=== PATIENT | female | born 1990 | race American Indian/Alaskan Native ===

== ENCOUNTER 2021-01-22 16:58 | Emergency (ER) | payer OTHER ==
[2021-01-22 19:19] LABS: Red Blood Count 4.05 M/mm3 (3.65-5.03)
[2021-01-22 19:20] LABS: Basophils # (Auto) 0.1 K/mm3 (0.0-0.1); Basophils % (Auto) 0.6 % (0.0-1.8); Eosinophils # (Auto) 0.1 K/mm3 (0.0-0.4); Eosinophils % (Auto) 0.9 % (0.0-4.3); Hematocrit 38.9 % (30.3-42.9); Hemoglobin 13.1 gm/dl (10.1-14.3); Lymphocytes # (Auto) 1.8 K/mm3 (1.2-5.4); Lymphocytes % (Auto) 18.1 % (13.4-35.0); Mean Corpuscular HGB Conc 34 % (30-34); Mean Corpuscular Volume 96 fl (79-97); Monocytes % (Auto) 9.5 % (0.0-7.3); Platelet Count 304 K/mm3 (140-440); Red Cell Distribution Width 14.1 % (13.2-15.2)
[2021-01-22 19:25] LABS: BUN/Creatinine Ratio 11; Blood Urea Nitrogen 12 mg/dL (7-17); Calcium 9.8 mg/dL (8.4-10.2); Hemolysis Index 7
--- NOTE | 2021-01-22 19:33 | Emergency Department Report ---
ED General Adult HPI - General Chief complaint: Urogenital-Female Stated complaint: 7WKS PREG/BLOOD PRESSURE HIGH/ABD PAIN Time Seen by Provider: 01/22/21 18:25 Source: patient Mode of arrival: Ambulatory Limitations: No Limitations - History of Present Illness Initial comments: Patient is a 30-year-old female presents emergency room with complaints of mild lower abdominal cramping for the last few days. Patient states that she originally went to [facility] for confirmation of and was advised she was back in November. She states that she then saw Merritt Giraldo CLERK MANAGER at the end of December and was advised that she had a 7-week gestational sac but no heartbeat. She states a few days later she went to [facility] emergency room and was advised that she had a 5-week gestational sac but again no heartbeat. She states that Merritt Giraldo advised her that she likely had demise and they offered her Cytotec or D&C. She states that she reports to the emergency room today due to the cramping and she wants to have another opinion. She denies any fever, nausea, vomiting, diarrhea, urinary symptoms, vaginal bleeding. Past medical history of hypertension and brain aneurysm causing intercranial hemorrhage. No allergies to medications. She takes metoprolol chlorothiazide and amlodipine daily. - Related Data Previous Rx's Medication Instructions Recorded Last Taken Type hydrALAZINE [Apresoline TAB] 25 mg PO Q8HR PRN #10 tab 01/22/21 Unknown Rx Allergies Allergy/AdvReac Type Severity Reaction Status Date / Time No Known Allergies Allergy Verified 01/22/21 21:13 ED Review of Systems ROS: Stated complaint: 7WKS PREG/BLOOD PRESSURE HIGH/ABD PAIN Other details as noted in HPI Comment: All other systems reviewed and negative ED Past Medical Hx - Past Medical History Previous Medical History?: Yes Hx Hypertension: Yes Hx CVA: Yes (2019) - Surgical History Past Surgical History?: No - Social History Smoking Status: Never Smoker Substance Use Type: None - Medications Home Medications: Home Medications Medication Instructions Recorded Confirmed Last Taken Type hydrALAZINE [Apresoline TAB] 25 mg PO Q8HR PRN #10 tab 01/22/21 Unknown Rx ED Physical Exam - General Limitations: No Limitations General appearance: alert, in no apparent distress - Head Head exam: Present: atraumatic, normocephalic - Eye Eye exam: Present: normal appearance - ENT ENT exam: Present: mucous membranes moist - Respiratory Respiratory exam: Present: normal lung sounds bilaterally. Absent: respiratory distress, wheezes, rales, rhonchi, stridor, chest wall tenderness, accessory muscle use, decreased breath sounds, prolonged expiratory - Cardiovascular Cardiovascular Exam: Present: regular rate, normal rhythm, normal heart sounds. Absent: systolic murmur, diastolic murmur, rubs, gallop - Neurological Exam Neurological exam: Present: alert, oriented X3 - Psychiatric Psychiatric exam: Present: normal affect, normal mood - Skin Skin exam: Present: warm, dry, intact ED Course Vital Signs 01/22/21 01/22/21 18:24 22:14 Temperature 98.9 F Pulse Rate 89 69 Respiratory 20 16 Rate Blood Pressure 185/115 180/99 [Left] O2 Sat by Pulse 100 100 Oximetry ED Medical Decision Making - Lab Data Result diagrams: 01/22/21 18:56 01/22/21 18:56 Lab Results 01/22/21 01/22/21 01/22/21 Range/Units 18:56 18:56 18:56 WBC 10.1 (4.5-11.0) K/mm3 RBC 4.05 (3.65-5.03) M/mm3 Hgb 13.1 (10.1-14.3) gm/dl Hct 38.9 (30.3-42.9) % MCV 96 (79-97) fl MCH 32 (28-32) pg MCHC 34 (30-34) % RDW 14.1 (13.2-15.2) % Plt Count 304 (140-440) K/mm3 Lymph % (Auto) 18.1 (13.4-35.0) % [place] % (Auto) 9.5 H (0.0-7.3) % Eos % (Auto) 0.9 (0.0-4.3) % Baso % (Auto) 0.6 (0.0-1.8) % Lymph # (Auto) 1.8 (1.2-5.4) K/mm3 [place] # (Auto) 1.0 H (0.0-0.8) K/mm3 Eos # (Auto) 0.1 (0.0-0.4) K/mm3 Baso # (Auto) 0.1 (0.0-0.1) K/mm3 Seg Neutrophils % 70.9 H (40.0-70.0) % Seg Neutrophils # 7.1 (1.8-7.7) K/mm3 Sodium 135 L (137-145) mmol/L Potassium 3.9 (3.6-5.0) mmol/L Chloride 102.3 (98-107) mmol/L Carbon Dioxide 21 L (22-30) mmol/L Anion Gap 16 mmol/L BUN 12 (7-17) mg/dL Creatinine 1.1 (0.6-1.2) mg/dL Estimated GFR > 60 ml/min BUN/Creatinine Ratio 11 % Glucose 144 H (65-100) mg/dL Calcium 9.8 (8.4-10.2) mg/dL HCG, Quant 2400 H (0-4) mIU/mL Vital Signs 01/22/21 18:24 Temperature 98.9 F Pulse Rate 89 Respiratory 20 Rate Blood Pressure 185/115 [Left] O2 Sat by Pulse 100 Oximetry Vital Signs 01/22/21 01/22/21 18:24 22:14 Temperature 98.9 F Pulse Rate 89 69 Respiratory 20 16 Rate Blood Pressure 185/115 180/99 [Left] O2 Sat by Pulse 100 100 Oximetry - Radiology Data Radiology results: report reviewed Ordering Physician: ANALISA WHITMAN Date of Service: 01/22/21 Procedure(s): US OB transvaginal Accession Number(s): [id number] cc: ANALISA WHITMAN ULTRASOUND OBSTETRIC INDICATION / CLINICAL INFORMATION: , recent dx possible demise,cramping. TECHNIQUE: Transabdominal and Transvaginal. COMPARISON: None available. FINDINGS: GESTATIONAL SAC: Well-defined oval shape and intrauterine in location. YOLK SAC: No significant abnormality. EMBRYO/FETUS: No significant abnormality. - [place]-Rump Length = 0.36 cm = 6 weeks, 0 day(s). - Heart Rate, beats per minute (if present) = not detected with M-mode or color Doppler ADNEXA: Left ovarian follicular cyst measures 4.0 x 2.4 x 3.2 cm. Right ovary within normal limits FREE FLUID: None. ADDITIONAL FINDINGS: None. IMPRESSION: 1. Probable demise with no detectable heart rate. Due to early dates, recommend follow-up beta-hCG and ultrasound in 2 days for definitive confirmation 2. 4 cm left ovarian follicular cyst Signer Name: Al Kaye MD Signed: 01/22/2021 8:48 PM Workstation Name: [id number] Transcribed By: RIKA Dictated By: Al Kaye MD Electronically Authenticated By: Al Kaye MD Signed Date/Time: 01/22/212047 DD/ 44 TD/TT: - Medical Decision Making Patient is a 30-year-old female presents emergency room with complaints of mild lower abdominal cramping for the last few days. Patient states that she originally went to [facility] for confirmation of and was advised she was back in November. She states that she then saw Merritt Giraldo CLERK MANAGER at the end of December and was advised that she had a 7-week gestational sac but no heartbeat. She states a few days later she went to [facility] emergency room and was advised that she had a 5-week gestational sac but again no heartbeat. She states that Merritt Giraldo advised her that she likely had demise and they offered her Cytotec or D&C. She states that she reports to the emergency room today due to the cramping and she wants to have another opinion. She denies any fever, nausea, vomiting, diarrhea, urinary symptoms, vaginal bleeding. Past medical history of hypertension and brain aneurysm causing intercranial hemorrhage. No allergies to medications. She takes metoprolol chlorothiazide and amlodipine daily. Vitals with elevated blood pressure, otherwise vitals are normal. No abdominal tenderness on exam, no guarding, no rebound, no rigidity, no peritoneal signs, patient is in no acute distress, nontoxic appearing. Labs with hCG quant 2400. OB ultrasound: 1. Probable demise with no detectable heart rate. Due to early dates, recommend follow-up beta-hCG and ultrasound in 2 days for definitive confirmation 2. 4 cm left ovarian follicular cyst. Discussed ultrasound findings with patient which appear consistent with demise, stressed the importance of CLERK MANAGER follow-up as this likely shows retained products from demise. Discussed case with Dr. Santiago, ER attending regarding patient's history of chronic hypertension with intracranial hemorrhage, he advised to give patient 25 mg p.o. hydralazine now and to give patient prescription for 10 tablets of 25 mg hydralazine to take as needed if systolic blood pressure is greater than 180. Discussed all findings with patient and answer questions. Advised patient Please take medication as directed if blood p ressure is greater than 180 systolic. Eat a low-sodium diet, incorporate 30 to 60 minutes of daily exercise, increase your water intake, keep a blood pressure log. Follow-up with your primary care doctor. Please follow-up with your CLERK MANAGER, you need close CLERK MANAGER follow-up. Return to emergency room for any new or worsening symptoms. Critical care attestation.: If time is entered above; I have spent that time in minutes in the direct care of this critically ill patient, excluding procedure time. ED Disposition Clinical Impression: demise, Elevated blood pressure reading, Chronic hypertension Disposition: HOME / SELF CARE / HOMELESS Is pt being admited?: No Does the pt Need Aspirin: No Condition: Stable Instructions: Demise, Managing Your Hypertension, Hypertension (ED) Additional Instructions: Please take medication as directed if blood pressure is greater than 180 systolic. Eat a low-sodium diet, incorporate 30 to 60 minutes of daily exercise, increase your water intake, keep a blood pressure log. Follow-up with your primary care doctor. Please follow-up with your CLERK MANAGER, you need close CLERK MANAGER follow-up. Return to emergency room for any new or worsening symptoms. Prescriptions: hydrALAZINE [Apresoline TAB] 25 mg PO Q8HR PRN #10 tab PRN Reason: if blood pressure is >180 Referrals: [facility] [Provider Group] - 2-3 Days [facility] [Provider Group] - 2-3 Days NADIRA GARRIDO MD [Staff Physician] - 2-3 Days GUSTABO DOYLE MD [Staff Physician] - 2-3 Days Time of Disposition: 21:06 Print Language: CANADIAN
--- NOTE | 2021-01-22 20:52 | Ultrasound Report ---
ULTRASOUND OBSTETRIC INDICATION / CLINICAL INFORMATION: , recent dx possible demise,cramping. TECHNIQUE: Transabdominal and Transvaginal. COMPARISON: None available. FINDINGS: GESTATIONAL SAC: Well-defined oval shape and intrauterine in location. YOLK SAC: No significant abnormality. EMBRYO/FETUS: No significant abnormality. - [place]-Rump Length = 0.36 cm = 6 weeks, 0 day(s). - Heart Rate, beats per minute (if present) = not detected with M-mode or color Doppler ADNEXA: Left ovarian follicular cyst measures 4.0 x 2.4 x 3.2 cm. Right ovary within normal limits FREE FLUID: None. ADDITIONAL FINDINGS: None. IMPRESSION: 1. Probable demise with no detectable heart rate. Due to early dates, recommend follow-up beta- hCG and ultrasound in 2 days for definitive confirmation 2. 4 cm left ovarian follicular cyst Signer Name: Al Kaye MD Signed: 01/22/2021 8:48 PM Workstation Name: [id number]
--- NOTE | 2021-01-22 20:52 | Ultrasound Report ---
ULTRASOUND OBSTETRIC INDICATION / CLINICAL INFORMATION: , recent dx possible demise,cramping. TECHNIQUE: Transabdominal and Transvaginal. COMPARISON: None available. FINDINGS: GESTATIONAL SAC: Well-defined oval shape and intrauterine in location. YOLK SAC: No significant abnormality. EMBRYO/FETUS: No significant abnormality. - [place]-Rump Length = 0.36 cm = 6 weeks, 0 day(s). - Heart Rate, beats per minute (if present) = not detected with M-mode or color Doppler ADNEXA: Left ovarian follicular cyst measures 4.0 x 2.4 x 3.2 cm. Right ovary within normal limits FREE FLUID: None. ADDITIONAL FINDINGS: None. IMPRESSION: 1. Probable demise with no detectable heart rate. Due to early dates, recommend follow-up beta- hCG and ultrasound in 2 days for definitive confirmation 2. 4 cm left ovarian follicular cyst Signer Name: Al Kaye MD Signed: 01/22/2021 8:48 PM Workstation Name: [id number]
[2021-01-22] MEDS ORDERED: hydrALAZINE 25 MG TAB PO ONE (21:46)
[2021-01-23 05:52] VITALS: BP 180/99
== END 2021-01-22 22:14 | disposition home or self-care (01) ==
LOC: ED 16:58
DX: O36.4XX0 Maternal care for intrauterine death, not applicable or unspecified (principal); R03.0 Elevated blood-pressure reading, without diagnosis of hypertension; I10 Essential (primary) hypertension; Z3A.01 Less than 8 weeks gestation of pregnancy
CPT/HCPCS: 36415; 76801; 76817; 80048; 84702; 85025; 99284

== ENCOUNTER 2021-01-28 02:00 | Emergency (ER) | payer OTHER ==
--- NOTE | 2021-01-28 05:17 | XRay Report ---
EXAMINATION: XR knee 3V LT, INDICATION / CLINICAL INFORMATION: knee pain s/p fall COMPARISON: None available. FINDINGS: BONES / JOINT(S): No acute fracture or subluxation. Moderate joint effusion is nonossific. SOFT TISSUES: No significant abnormality. ADDITIONAL FINDINGS: None. IMPRESSION: Moderate joint effusion, which is nonspecific. No acute osseous abnormality of the left knee. Signer Name: Emerson Oneil MD Signed: 01/28/2021 5:12 AM Workstation Name: [id number]
[2021-01-28] MEDS ORDERED: ACETAMINOPHEN 500 MG TAB PO ONE (06:28)
--- NOTE | 2021-01-28 06:30 | Emergency Department Report ---
ED Lower Extremity HPI - History of Present Illness Initial Comments: Patient 30-year-old female who presents with left knee pain and swelling status post ground-level fall 1 yesterday. Patient states she accidentally tripped and fell landing on her left anterior knee causing pain and swelling. It is described as 5/10 aching sharp shooting. Patient is partial weightbearing on the left knee at this time. There is no numbness no tingling no obvious deformity. Patient denies other injury there is no LOC during the fall there is no abdominal pain no vaginal bleeding no back pain dizziness lightheadedness no nausea or vomiting. MD Complaint: knee injury - Related Data Previous Rx's Medication Instructions Recorded Last Taken Type hydrALAZINE [Apresoline TAB] 25 mg PO Q8HR PRN #10 tab 01/22/21 Unknown Rx Acetaminophen 650 mg PO Q6H PRN #30 tab.chew 01/28/21 Unknown Rx Menthol/Camphor [[place] 1 applicatio TP QID PRN #1 tube 01/28/21 Unknown Rx Ointment] Allergies Allergy/AdvReac Type Severity Reaction Status Date / Time No Known Allergies Allergy Verified 01/22/21 21:13 ED Review of Systems ROS: Stated complaint: Other details as noted in HPI Constitutional: denies: chills, fever Eyes: denies: eye pain, eye discharge, vision change ENT: denies: ear pain, throat pain Respiratory: denies: cough, shortness of breath, wheezing Cardiovascular: denies: chest pain, palpitations Endocrine: no symptoms reported Gastrointestinal: denies: abdominal pain, nausea, diarrhea Genitourinary: denies: urgency, dysuria, discharge Musculoskeletal: joint swelling, other (knee pain and swelling left ). denies: back pain, arthralgia Skin: denies: rash, lesions Neurological: denies: headache, weakness, paresthesias Psychiatric: denies: anxiety, depression Hematological/Lymphatic: denies: easy bleeding, easy bruising ED Past Medical Hx - Past Medical History Hx Hypertension: Yes Hx CVA: Yes (2019) - Social History Smoking Status: Never Smoker Substance Use Type: None - Medications Home Medications: Home Medications Medication Instructions Recorded Confirmed Last Taken Type hydrALAZINE [Apresoline TAB] 25 mg PO Q8HR PRN #10 tab 01/22/21 Unknown Rx Acetaminophen 650 mg PO Q6H PRN #30 tab.chew 01/28/21 Unknown Rx Menthol/Camphor [[place] 1 applicatio TP QID PRN #1 tube 01/28/21 Unknown Rx Ointment] ED Physical Exam - General General appearance: alert, in no apparent distress - Head Head exam: Present: atraumatic, normocephalic - Eye Eye exam: Present: normal appearance, PERRL, EOMI Pupils: Present: normal accommodation - ENT ENT exam: Present: mucous membranes moist - Neck Neck exam: Present: normal inspection, full ROM. Absent: tenderness - Respiratory Respiratory exam: Present: normal lung sounds bilaterally. Absent: respiratory distress, wheezes, stridor, chest wall tenderness - Cardiovascular Cardiovascular Exam: Present: regular rate, normal rhythm, normal heart sounds. Absent: systolic murmur, diastolic murmur, rubs, gallop - GI/Abdominal GI/Abdominal exam: Present: soft, normal bowel sounds. Absent: distended, tenderness - Rectal Rectal exam: Present: deferred - Extremities Exam Extremities exam: Present: full ROM, tenderness, joint swelling (left anterior knee ) - Expanded Lower Extremity Exam Left Knee exam: Present: full ROM, tenderness, swelling, effusion (anterlor lateral knee ), pain w/ pronation/supination, pain/laxity with valgus, pain/laxity with varus, full knee extension. Absent: abrasion, laceration, ecchymosis, deformity, crepidus, dislocation, erythema, posterior draw sign Lower Leg exam: Present: normal inspection, full ROM. Absent: tenderness, palpable cord, Daniel's sign Ankle exam: Present: normal inspection, full ROM. Absent: tenderness Foot/Toe exam: Present: full ROM. Absent: tenderness, swelling Neuro vascular tendon exam: Absent: pulse deficit, motor deficit, sensory deficit, tendon deficit Gait: Positive: observed and limited by pain - Back Exam Back exam: Present: normal inspection - Neurological Exam Neurological exam: Present: alert, oriented X3, CN II-XII intact, normal gait - Psychiatric Psychiatric exam: Present: normal affect, normal mood - Skin Skin exam: Present: warm, dry, intact, normal color. Absent: rash, erythema, urticaria ED Lower Extremity MDM - Radiology Data Radiology results: report reviewed, image reviewed EXAMINATION: XR knee 3V LT, INDICATION / CLINICAL INFORMATION: knee pain s/p fall COMPARISON: None available. FINDINGS: BONES / JOINT(S): No acute fracture or subluxation. Moderate joint effusion is nonossific. SOFT TISSUES: No significant abnormality. ADDITIONAL FINDINGS: None. IMPRESSION: Moderate joint effusion, which is nonspecific. No acute osseous abnormality of the left knee. Signer Name: Kim Prieto MD Signed: 01/28/2021 5:12 AM Workstation Name: [id number] Transcribed By: JS Dictated By: KIM PRIETO MD Electronically Authenticated By: KIM PRIETO MD Signed Date/Time: 01/28/21511 DD/ 0 TD/TT: - Medical Decision Making This is a knee sprain with moderate left lateral effusion. Plan Tylenol, analgesic rub, Carl wrap, rice therapy, use crutches, follow-up primary care doctor in 2 to 3 days. Return to emergency should symptoms worsen. Patient verbalized agreement and understanding with discharge plan. Patient will be DC'd to home in stable condition at this time. Patient has demonstrated safe use of crutches Critical care attestation.: If time is entered above; I have spent that time in minutes in the direct care of this critically ill patient, excluding procedure time. ED Disposition Clinical Impression: Effusion of left knee Fall Qualifiers: Encounter type: initial encounter Qualified Code(s): W19.XXXA - Unspecified fall, initial encounter Strain of left knee Qualifiers: Encounter type: initial encounter Qualified Code(s): S86.912A - Strain of unspecified muscle(s) and tendon(s) at lower leg level, left leg, initial encounter Disposition: 01 HOME / SELF CARE / HOMELESS Is pt being admited?: No Does the pt Need Aspirin: No Condition: Stable Instructions: Elastic Bandage and RICE Therapy, Crutch Use, Adult, Knee Exercises-SportsMed Additional Instructions: Take all medications as prescribed, moist heat therapy, rice therapy as directed, crutches and Carl wrap as directed, follow-up with your primary care doctor in 2 to 3 days. Return to emergency should symptoms worsen. Prescriptions: Acetaminophen 650 mg PO Q6H PRN #30 tab.chew PRN Reason: pain Menthol/Camphor [[place] Ointment] 1 applicatio TP QID PRN #1 tube PRN Reason: pain Referrals: PRIMARY CAREMD [Primary Care Provider] - 3-5 Days CRISTOBAL JONES MD [Staff Physician] - 3-5 Days Forms: Work/School Release Form(ED) Time of Disposition: 06:36
== END 2021-01-28 07:20 | disposition home or self-care (01) ==
LOC: ED 02:00
DX: S86.912A Strain of unspecified muscle(s) and tendon(s) at lower leg level, left leg, initial encounter (principal); M25.462 Effusion, left knee; I10 Essential (primary) hypertension; Z86.73 Personal history of transient ischemic attack (TIA), and cerebral infarction without residual deficits; W19.XXXA Unspecified fall, initial encounter; Y92.89 Other specified places as the place of occurrence of the external cause; Y93.89 Activity, other specified; Y99.8 Other external cause status
CPT/HCPCS: 99283